=== PATIENT | male | born 1990 | race Native Hawaiian/Other Pacific Islander ===

== ENCOUNTER 2017-04-09 22:30 | Emergency (ER) | payer OTHER ==
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
[2017-04-10 00:25] VITALS: BP 138/82; PULSE 96; RESP 20; TEMP 98.2
[2017-04-10 02:05] VITALS: O2SAT 100
== END 2017-04-10 00:25 | disposition home or self-care (01) ==
LOC: C.ER 22:30
DX: Z04.1 Encounter for examination and observation following transport accident (principal)
CPT/HCPCS: 96372; 99285; J1885